=== PATIENT | female | born 1975 ===

== ENCOUNTER 2017-08-30 09:36 | Observation (INO) | payer SELFPAY ==
[2017-08-30 09:38] VITALS: BMI 26.0
[2017-08-30 11:18] LABS: BASO # 0.1 K/uL (0.0-0.2); BASO % 1.1 % (0.0-2.0); EOS # 0.1 K/uL (0.0-0.7); EOS % 1.9 % (0.0-4.0); HEMOGLOBIN 15.2 g/dL (12.0-16.0); LYMPH % 33.4 % (20.0-40.0); MEAN CELL VOLUME 99.2 fl (81.0-99.0); MEAN CORPUSCULAR HEMOGLOBIN 34.2 pg (27.0-31.0); MEAN CORPUSCULAR HGB CONC 34.4 g/dL (33.0-37.0); MEAN PLATELET VOLUME 9.6 fl (7.2-11.7); MONO # 0.4 K/uL (0.0-0.8); MONO % 6.8 % (0.0-10.0); NEUT # 3.4 K/uL (1.8-7.0); NEUT % 56.8 % (50.0-75.0); NRBC % 0.1 % (0.0-0.0); RBC 4.44 Mil/uL (3.80-5.20)
[2017-08-30 11:23] LABS: PROTHROMBIN TIME 10.5 Seconds (9.8-13.1)
[2017-08-30 11:24] LABS: PARTIAL THROMBOPLASTIN TIME 32.4 Seconds (25.6-37.1)
--- NOTE | 2017-08-30 11:47 | CT ---
PROCEDURE: CT HEAD WITHOUT CONTRAST. HISTORY: Perioral numbness COMPARISON: None available. TECHNIQUE: Axial computed tomography images were obtained through the head/brain without intravenous contrast. Radiation dose: Total exam DLP = 843.76 mGy-cm. This CT exam was performed using one or more of the following dose reduction techniques: Automated exposure control, adjustment of the mA and/or kV according to patient size, and/or use of iterative reconstruction technique. FINDINGS: HEMORRHAGE: No intracranial hemorrhage. BRAIN: Normal milian-white matter differentiation and density are appreciated throughout the cerebrum and cerebellum with the brainstem appearing unremarkable as well. There is no mass effect. There is no suspicious extra-axial fluid collection and the midline brain anatomy appears diffusely unremarkable. VENTRICLES: Unremarkable. No hydrocephalus. CALVARIUM: Unremarkable. PARANASAL SINUSES: Unremarkable as visualized. No significant inflammatory changes. MASTOID AIR CELLS: Unremarkable as visualized. No inflammatory changes. OTHER FINDINGS: None. IMPRESSION: Unremarkable unenhanced head CT.
--- NOTE | 2017-08-30 11:59 | RAD ---
HISTORY: Perioral numbness COMPARISON: No prior. TECHNIQUE: Chest PA and lateral FINDINGS: LUNGS: No active pulmonary disease. PLEURA: No significant pleural effusion identified. No pneumothorax apparent. CARDIOVASCULAR: Normal. OSSEOUS STRUCTURES: No significant abnormalities. VISUALIZED UPPER ABDOMEN: Normal. OTHER FINDINGS: None. IMPRESSION: No active disease.
[2017-08-30 12:00] LABS: ALB/GLOB RATIO 1.2 (1.0-2.1); ALBUMIN 4.1 g/dL (3.5-5.0); ALT/SGPT 47 U/L (9-52); AST/SGOT 28 U/L (14-36); BLOOD UREA NITROGEN 10 mg/dl (7-17); CALCIUM 8.8 mg/dL (8.4-10.2); GFR AFRICAN-AMERICAN > 60; GFR NON-AFRICAN AMERICAN > 60; HDL CHOLESTEROL 48 MG/DL (30-70)
[2017-08-30 12:12] LABS: LDL CHOLESTEROL 85 mg/dL (0-129)
--- NOTE | 2017-08-30 12:17 | ED PDOC ---
HPI: Neurologic - General Time Seen by Provider: 08/30/17 10:27 Chief Complaint (Nursing): Upper Extremity Problem/Injury Chief Complaint (Provider): Mouth numbness Source: patient Exam Limitations: language barrier (Ham Pumper: Juanis Pace) - History of Present Illness Allergies/Adverse Reactions: Allergies No Known Allergies Allergy (Verified 08/30/17 09:45) Home Medications: Ambulatory Orders No Known Home Med 08/30/17 Additional Complaint(s): Pt sent from [facility] for numbness around mouth, r/o TIA. Reports symptom X 2 weeks , intermittent. Current episode started 5 days ago, resolving at present. Denies MEDRANO, visual changes, extremity numbness or weakness. rTPA Inclusion/Exclusion - Refusal of Treatment Patient Refused Treatment: No - Inclusion Criteria for Altepase Patient is 18 years or Older: Yes The Clinical Diagnosis of Ischemic Stroke That is Causing a Potentially Disabling Neurological Deficit: No Time of Onset is Well Established to be Less Than 270 Minute Before Treatment Would Begin: No Risk/Benefit Discussed With Patient/Family Member Present: No Past Medical History Reviewed: Nursing Documentation, Vital Signs Vital Signs: Last Vital Signs Temp 97.5 F L 08/30/17 09:38 Pulse 57 L 08/30/17 09:38 Resp 17 08/30/17 09:38 BP 161/85 H 08/30/17 09:38 Pulse Ox 98 08/30/17 09:45 - Medical History PMH: No Chronic Diseases - Family History Family History: States: Unknown Family Hx - Social History Current smoker - smoking cessation education provided: No Alcohol: None - Home Medications Home Medications: Ambulatory Orders Medication Instructions Recorded No Known Home Med 08/30/17 - Allergies Allergies/Adverse Reactions: Allergies Allergy/AdvReac Type Severity Reaction Status Date / Time No Known Allergies Allergy Verified 08/30/17 09:45 Review of Systems Constitutional: Negative for: Fever, Chills, Weakness, Malaise Cardiovascular: Negative for: Chest Pain, Palpitations Respiratory: Negative for: Cough, Shortness of Breath Gastrointestinal: Negative for: Abdominal Pain Musculoskeletal: Negative for: Neck Pain, Back Pain Skin: Negative for: Rash, Lesions Neurological: Positive for: Numbness (Perioral). Negative for: Weakness, Incoordination, Change in Speech, Confusion, Seizures, Altered Mental Status, Headache, Dizziness Physical Exam - Reviewed Nursing Documentation Reviewed: Yes Vital Signs Reviewed: Yes - Physical Exam Appears: Positive for: Well, No Acute Distress Head Exam: Positive for: ATRAUMATIC, NORMAL INSPECTION Skin: Positive for: Normal Color, Warm, Dry Eye Exam: Positive for: Normal appearance, EOMI, PERRL ENT: Positive for: Normal ENT Inspection Neck: Positive for: Normal, Painless ROM, Supple Cardiovascular/Chest: Positive for: Regular Rate, Rhythm Respiratory: Positive for: Normal Breath Sounds Extremity: Positive for: Normal ROM Neurologic/Psych: Positive for: Alert, yard laborer II-XII, Oriented, Gait (Steady). Negative for: Motor/Sensory Deficits, Aphasia, Facial Droop - Laboratory Results Result Diagrams: 08/30/17 11:00 08/30/17 11:00 - ECG O2 Sat by Pulse Oximetry: 98 Medical Decision Making Medical Decision Makin yo female with perioral numbness. - labs - EKG - CXR - CT head Accession No. : [id number] Patient Name / ID : FLORENCIA ANTONIO / [id number] Exam Date : 08/30/2017 11:07:10 ( Approved ) Study Comment : Sex / Age : F / 42Y Creator : Wally Dutta MD Dictator : Wally Dutta MD Waiter/Waitress Counter : Manipulative Therapy Specialist : Wally Dutta MD Approver2 : Report Date : 08/30/2017 11:58:13 My Comment : HISTORY: Perioral numbness COMPARISON: No prior. TECHNIQUE: Chest PA and lateral FINDINGS: LUNGS: No active pulmonary disease. PLEURA: No significant pleural effusion identified. No pneumothorax apparent. CARDIOVASCULAR: Normal. OSSEOUS STRUCTURES: No significant abnormalities. VISUALIZED UPPER ABDOMEN: Normal. OTHER FINDINGS: None. IMPRESSION: No active disease. Accession No. : [id number] Patient Name / ID : FLORENCIA STAFFORD / [id number] Exam Date : 08/30/2017 11:28:50 ( Approved ) Study Comment : Sex / Age : F / 42Y Creator : Zack Martínez MD Dictator : Zack Martínez MD Waiter/Waitress Counter : Manipulative Therapy Specialist : Zack Martínez MD Approver2 : Report Date : 08/30/2017 11:45:36 My Comment : PROCEDURE: CT HEAD WITHOUT CONTRAST. HISTORY: Perioral numbness COMPARISON: None available. TECHNIQUE: Axial computed tomography images were obtained through the head/brain without intravenous contrast. Radiation dose: Total exam DLP = 843.76 mGy-cm. This CT exam was performed using one or more of the following dose reduction techniques: Automated exposure control, adjustment of the mA and/or kV according to patient size, and/or use of iterative reconstruction technique. FINDINGS: HEMORRHAGE: No intracranial hemorrhage. BRAIN: Normal milian-white matter differentiation and density are appreciated throughout the cerebrum and cerebellum with the brainstem appearing unremarkable as well. There is no mass effect. There is no suspicious extra-axial fluid collection and the midline brain anatomy appears diffusely unremarkable. VENTRICLES: Unremarkable. No hydrocephalus. CALVARIUM: Unremarkable. PARANASAL SINUSES: Unremarkable as visualized. No significant inflammatory changes. MASTOID AIR CELLS: Unremarkable as visualized. No inflammatory changes. OTHER FINDINGS: None. IMPRESSION: Unremarkable unenhanced head CT. Disposition - Clinical Impression Clinical Impression: Perioral numbness - Patient ED Disposition Is Patient to be Admitted: Yes - Disposition Disposition Time: 12:13 (.) Condition: STABLE - Pt Status Changed To: Hospital Disposition Of: Observation - POA Present On Arrival: None
[2017-08-30 12:48] LABS: SQUAMOUS EPITHIAL 1 /hpf (0-5); URINE BACTERIA RARE (<OCC); URINE BILIRUBIN NEGATIVE (NEGATIVE); URINE BLOOD NEGATIVE (NEGATIVE); URINE CLARITY SLIGHTY-CLOUDY (Clear); URINE COLOR STRAW (YELLOW); URINE GLUCOSE (UA) NEG (Normal); URINE LEUKOCYTE ESTERASE TRACE Leu/uL (Negative); URINE PROTEIN NEGATIVE (NEGATIVE); URINE UROBILINOGEN 0.2-1.0 mg/dL (0.2-1.0)
[2017-08-30] MEDS: Sodium Chloride 0.9% 1,000 ML IV SCH (13:09)
--- NOTE | 2017-08-30 15:40 | CP.PCM.HP ---
History of Present Illness - History of Present Illness History of Present Illness: CC: Prisca-oral numbness HPI: 42 YO Female with sig PMH presents to [facility] ED from [facility] for perioral numbness. Pt states that her symptoms started about 2 weeks ago, numbness is located bilaterally and is episodic in nature. Pt states that she had the numbness this morning, but it has resolved. Eating w/o any difficulties, no weakness in the upper or lower extremities, no headache, dizziness, blurry vision. ED: VS were stable in ED. CT head was done unremarkable CT. Chest X-ray no active disease. EKG 57, sinus bradycardia with no acute ST changes. Blood work and urine appreciated, wnl. PO asa 325mg. PMD: [facility]; Dr. 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, LMP was 2 weeks ago-regular Allergies: NKDA Meds: no home meds Present on Admission - Present on Admission Any Indicators Present on Admission: No Review of Systems - EENT Eyes: absent: Blind Spots, Blurred Vision, Change in Vision Nose/Mouth/Throat: absent: Lip Swelling, Mouth Lesions, Mouth Pain, Facial Pain - Cardiovascular Cardiovascular: absent: Chest Pain, Dyspnea, Palpitations - Respiratory Respiratory: absent: Cough, Dyspnea - Gastrointestinal Gastrointestinal: absent: Abdominal Pain, Bloating, Diarrhea - Genitourinary Genitourinary: absent: Difficulty Urinating, Dysuria - Reproductive: Female Reproductive:Female: Normal Menses - Neurological Neurological: Numbness (prisca-oral numbness). absent: Confusion, Dizziness, Focal Weakness, Headaches, Memory Loss, Syncope - Psychiatric Psychiatric: absent: Anxiety, Depression Past Patient History - Past Social History Smoking Status: Never Smoked Alcohol: None Drugs: Denies Home Situation {Lives}: With Family - PSYCHIATRIC Hx Substance Use: No - SURGICAL HISTORY Hx Surgeries: No Meds Allergies/Adverse Reactions: Allergies Allergy/AdvReac Type Severity Reaction Status Date / Time No Known Allergies Allergy Verified 08/30/17 09:45 Physical Exam - Constitutional Appears: No Acute Distress - Head Exam Head Exam: ATRAUMATIC, NORMAL INSPECTION, NORMOCEPHALIC - Eye Exam Eye Exam: EOMI, Normal appearance - ENT Exam ENT Exam: Mucous Membranes Moist, Normal Exam Additional comments: No prisca-oral lesions, no sensory deficit. - Respiratory Exam Respiratory Exam: Clear to Auscultation Bilateral, NORMAL BREATHING PATTERN. absent: Wheezes - Cardiovascular Exam Cardiovascular Exam: REGULAR RHYTHM, +S1, +S2 - GI/Abdominal Exam GI & Abdominal Exam: Normal Bowel Sounds, Soft. absent: Tenderness - Extremities Exam Extremities exam: Positive for: full ROM. Negative for: pedal edema Additional comments: Neg pronator drift - Back Exam Back exam: NORMAL INSPECTION. absent: CVA tenderness (L), CVA tenderness (R) - Neurological Exam Neurological exam: Alert, CN II-XII Intact, Normal Gait, Oriented x3, Reflexes Normal (b/l in the upper and lower extremities ) Additional comments: Good strength and sensation in the upper and lower extremities No balance, gait issues - Psychiatric Exam Psychiatric exam: Normal Affect, Normal Mood - Skin Skin Exam: Dry, Intact, Normal Color, Warm Results - Vital Signs Recent Vital Signs: Last Vital Signs Temp 97.8 F 08/30/17 13:20 Pulse 66 08/30/17 13:20 Resp 18 08/30/17 13:20 BP 148/62 08/30/17 13:20 Pulse Ox 100 08/30/17 13:20 - Labs Result Diagrams: 08/30/17 11:00 08/30/17 11:00 Labs: Laboratory Results - last 24 hr 08/30/17 08/30/17 08/30/17 11:00 11:00 11:00 WBC 6.0 RBC 4.44 Hgb 15.2 Hct 44.1 MCV 99.2 H MCH 34.2 H MCHC 34.4 RDW 13.0 Plt Count 235 MPV 9.6 Neut % (Auto) 56.8 Lymph % (Auto) 33.4 [place] % (Auto) 6.8 Eos % (Auto) 1.9 Baso % (Auto) 1.1 Neut # (Auto) 3.4 Lymph # (Auto) 2.0 [place] # (Auto) 0.4 Eos # (Auto) 0.1 Baso # (Auto) 0.1 PT INR APTT Sodium 140 Potassium 4.1 Chloride 105 Carbon Dioxide 28 Anion Gap 11 BUN 10 Creatinine 0.5 L Est GFR ( Amer) > 60 Est GFR (Non-Af Amer) > 60 POC Glucose (mg/dL) Random Glucose 96 Hemoglobin A1c 5.4 Calcium 8.8 Total Bilirubin 0.5 AST 28 ALT 47 Alkaline Phosphatase 76 Troponin I < 0.0120 Total Protein 7.4 Albumin 4.1 Globulin 3.4 Albumin/Globulin Ratio 1.2 Triglycerides 65 Cholesterol 151 LDL Cholesterol Direct 85 HDL Cholesterol 48 Urine Color Urine Clarity Urine pH Ur Specific [place] Urine Protein Urine Glucose (UA) Urine Ketones Urine Blood Urine Nitrate Urine Bilirubin Urine Urobilinogen Ur Leukocyte Esterase Urine RBC (Auto) Urine Microscopic WBC Ur Squamous Epith Cells Urine Bacteria Blood Type Antibody Screen BBK History Checked 08/30/17 08/30/17 08/30/17 11:00 11:10 12:30 WBC RBC Hgb Hct MCV MCH MCHC RDW Plt Count MPV Neut % (Auto) Lymph % (Auto) [place] % (Auto) Eos % (Auto) Baso % (Auto) Neut # (Auto) Lymph # (Auto) [place] # (Auto) Eos # (Auto) Baso # (Auto) PT 10.5 INR 1.0 APTT 32.4 Sodium Potassium Chloride Carbon Dioxide Anion Gap BUN Creatinine Est GFR ( Amer) Est GFR (Non-Af Amer) POC Glucose (mg/dL) 88 Random Glucose Hemoglobin A1c Calcium Total Bilirubin AST ALT Alkaline Phosphatase Troponin I Total Protein Albumin Globulin Albumin/Globulin Ratio Triglycerides Cholesterol LDL Cholesterol Direct HDL Cholesterol Urine Color Straw Urine Clarity Slighty-cloudy Urine pH 7.0 Ur Specific [place] 1.006 Urine Protein Negative Urine Glucose (UA) Neg Urine Ketones Negative Urine Blood Negative Urine Nitrate Negative Urine Bilirubin Negative Urine Urobilinogen 0.2-1.0 Ur Leukocyte Esterase Trace Urine RBC (Auto) 1 Urine Microscopic WBC 2 Ur Squamous Epith Cells 1 Urine Bacteria Rare Blood Type Antibody Screen BBK History Checked 08/30/17 12:50 WBC RBC Hgb Hct MCV MCH MCHC RDW Plt Count MPV Neut % (Auto) Lymph % (Auto) [place] % (Auto) Eos % (Auto) Baso % (Auto) Neut # (Auto) Lymph # (Auto) [place] # (Auto) Eos # (Auto) Baso # (Auto) PT INR APTT Sodium Potassium Chloride Carbon Dioxide Anion Gap BUN Creatinine Est GFR ( Amer) Est GFR (Non-Af Amer) POC Glucose (mg/dL) Random Glucose Hemoglobin A1c Calcium Total Bilirubin AST ALT Alkaline Phosphatase Troponin I Total Protein Albumin Globulin Albumin/Globulin Ratio Triglycerides Cholesterol LDL Cholesterol Direct HDL Cholesterol Urine Color Urine Clarity Urine pH Ur Specific [place] Urine Protein Urine Glucose (UA) Urine Ketones Urine Blood Urine Nitrate Urine Bilirubin Urine Urobilinogen Ur Leukocyte Esterase Urine RBC (Auto) Urine Microscopic WBC Ur Squamous Epith Cells Urine Bacteria Blood Type O POSITIVE Antibody Screen Negative BBK History Checked No verified bt Assessment & Plan - Assessment and Plan (Free Text) Assessment: Assessment/Plan: 42 YO Female with no sig PMH is admitted for prisca-oral numbness, r/o TIA. Prisca-oral numbness -Unlikely to be TIA -Initial BP elevated at 161/85, following bp 148/62 -CT head: no acute findings -Chest X-ray: no active disease -EKG: sinus bradycardia with no acute ST changes -s/p asa 325mg -Calcium is wnl at 8.8 -b12 levels f/u -admit for obs in telemetry Asymptomatic bradycardia -initial HR 57, subsequent HR 66 -on chart review ecw, HR 50-69 -continue to monitor Diet -regular diet DVT props -Lovenox 40 SC
--- NOTE | 2017-08-30 18:13 | CP.PCM.CON ---
History of Present Illness - History of Present Illness History of Present Illness: Mrs. Shukri Sandoval is a 42-year-old woman with no significant past medical history, but states that her job is stressful, and has been having prisca-oral numbness in the mornings on occasion for the last two weeks. When I saw the patient, she was asymptomatic. She denied hyperventilation, changes in her diet , or any associated weakness, numbness or changes in vision. CT scan of the head was normal. Review of Systems - Review of Systems All systems: reviewed and no additional remarkable complaints except Past Patient History - Past Medical History & Family History Past Medical History?: Yes - Past Social History Smoking Status: Never Smoked Alcohol: None Drugs: Denies Home Situation {Lives}: With Family - CARDIAC Hx Cardiac Disorders: No - PULMONARY Hx Respiratory Disorders: No - NEUROLOGICAL Hx Neurological Disorder: No - HEENT Hx HEENT Problems: No - RENAL Hx Chronic Kidney Disease: No - ENDOCRINE/METABOLIC Hx Endocrine Disorders: No - HEMATOLOGICAL/ONCOLOGICAL Hx Blood Disorders: No - INTEGUMENTARY Hx Dermatological Problems: No - MUSCULOSKELETAL/RHEUMATOLOGICAL Hx Musculoskeletal Disorders: No Hx Falls: No - GASTROINTESTINAL Hx Gastrointestinal Disorders: No - GENITOURINARY/GYNECOLOGICAL Hx Genitourinary Disorders: No - PSYCHIATRIC Hx Substance Use: No - SURGICAL HISTORY Hx Surgeries: No - ANESTHESIA Hx Anesthesia Reactions: No Hx Malignant Hyperthermia: No Has any member of the family had a problem w/ anesthesia?: No Meds Allergies/Adverse Reactions: Allergies Allergy/AdvReac Type Severity Reaction Status Date / Time No Known Allergies Allergy Verified 08/30/17 09:45 - Medications Medications: Current Medications Enoxaparin Sodium (Lovenox) 40 mg SC DAILY VITALY PRN Reason: Protocol Sodium Chloride (Sodium Chloride 0.9%) 1,000 mls @ 100 mls/hr IV .Q10H VITALY Last Admin: 08/30/17 13:09 Dose: 100 mls/hr Physical Exam - Neurological Exam Neurological exam: Alert, CN II-XII Intact, Normal Gait, Oriented x3, Reflexes Normal Results - Vital Signs Recent Vital Signs: Last Vital Signs Temp 97.4 F L 08/30/17 16:32 Pulse 59 L 08/30/17 16:32 Resp 16 08/30/17 16:32 BP 149/99 H 08/30/17 16:32 Pulse Ox 99 08/30/17 16:32 - Labs Result Diagrams: 08/30/17 11:00 08/30/17 11:00 Labs: Laboratory Results - last 24 hr 08/30/17 08/30/17 08/30/17 11:00 11:00 11:00 WBC 6.0 RBC 4.44 Hgb 15.2 Hct 44.1 MCV 99.2 H MCH 34.2 H MCHC 34.4 RDW 13.0 Plt Count 235 MPV 9.6 Neut % (Auto) 56.8 Lymph % (Auto) 33.4 [place] % (Auto) 6.8 Eos % (Auto) 1.9 Baso % (Auto) 1.1 Neut # (Auto) 3.4 Lymph # (Auto) 2.0 [place] # (Auto) 0.4 Eos # (Auto) 0.1 Baso # (Auto) 0.1 PT INR APTT Sodium 140 Potassium 4.1 Chloride 105 Carbon Dioxide 28 Anion Gap 11 BUN 10 Creatinine 0.5 L Est GFR ( Amer) > 60 Est GFR (Non-Af Amer) > 60 POC Glucose (mg/dL) Random Glucose 96 Hemoglobin A1c 5.4 Calcium 8.8 Total Bilirubin 0.5 AST 28 ALT 47 Alkaline Phosphatase 76 Troponin I < 0.0120 Total Protein 7.4 Albumin 4.1 Globulin 3.4 Albumin/Globulin Ratio 1.2 Triglycerides 65 Cholesterol 151 LDL Cholesterol Direct 85 HDL Cholesterol 48 Urine Color Urine Clarity Urine pH Ur Specific [place] Urine Protein Urine Glucose (UA) Urine Ketones Urine Blood Urine Nitrate Urine Bilirubin Urine Urobilinogen Ur Leukocyte Esterase Urine RBC (Auto) Urine Microscopic WBC Ur Squamous Epith Cells Urine Bacteria Blood Type Antibody Screen BBK History Checked 08/30/17 08/30/17 08/30/17 11:00 11:10 12:30 WBC RBC Hgb Hct MCV MCH MCHC RDW Plt Count MPV Neut % (Auto) Lymph % (Auto) [place] % (Auto) Eos % (Auto) Baso % (Auto) Neut # (Auto) Lymph # (Auto) [place] # (Auto) Eos # (Auto) Baso # (Auto) PT 10.5 INR 1.0 APTT 32.4 Sodium Potassium Chloride Carbon Dioxide Anion Gap BUN Creatinine Est GFR ( Amer) Est GFR (Non-Af Amer) POC Glucose (mg/dL) 88 Random Glucose Hemoglobin A1c Calcium Total Bilirubin AST ALT Alkaline Phosphatase Troponin I Total Protein Albumin Globulin Albumin/Globulin Ratio Triglycerides Cholesterol LDL Cholesterol Direct HDL Cholesterol Urine Color Straw Urine Clarity Slighty-cloudy Urine pH 7.0 Ur Specific [place] 1.006 Urine Protein Negative Urine Glucose (UA) Neg Urine Ketones Negative Urine Blood Negative Urine Nitrate Negative Urine Bilirubin Negative Urine Urobilinogen 0.2-1.0 Ur Leukocyte Esterase Trace Urine RBC (Auto) 1 Urine Microscopic WBC 2 Ur Squamous Epith Cells 1 Urine Bacteria Rare Blood Type Antibody Screen BBK History Checked 08/30/17 12:50 WBC RBC Hgb Hct MCV MCH MCHC RDW Plt Count MPV Neut % (Auto) Lymph % (Auto) [place] % (Auto) Eos % (Auto) Baso % (Auto) Neut # (Auto) Lymph # (Auto) [place] # (Auto) Eos # (Auto) Baso # (Auto) PT INR APTT Sodium Potassium Chloride Carbon Dioxide Anion Gap BUN Creatinine Est GFR ( Amer) Est GFR (Non-Af Amer) POC Glucose (mg/dL) Random Glucose Hemoglobin A1c Calcium Total Bilirubin AST ALT Alkaline Phosphatase Troponin I Total Protein Albumin Globulin Albumin/Globulin Ratio Triglycerides Cholesterol LDL Cholesterol Direct HDL Cholesterol Urine Color Urine Clarity Urine pH Ur Specific [place] Urine Protein Urine Glucose (UA) Urine Ketones Urine Blood Urine Nitrate Urine Bilirubin Urine Urobilinogen Ur Leukocyte Esterase Urine RBC (Auto) Urine Microscopic WBC Ur Squamous Epith Cells Urine Bacteria Blood Type O POSITIVE Antibody Screen Negative BBK History Checked No verified bt Assessment & Plan (1) Perioral numbness Assessment and Plan: Likely anxiety or hyperventilation relation. Labs and imaging are normal. Follow up with outpatient primary care. Thank you. Status: Chronic Priority: Low
[2017-08-31] MEDS: Sodium Chloride 0.9% 1,000 ML IV SCH (00:09)
[2017-08-31 08:00] VITALS: BP 143/80; PULSE 64; RESP 16; TEMP 97.5; O2SAT 98
[2017-08-31] MEDS ORDERED: Enoxaparin 40 mg Syringe SC SCH (09:00)
--- NOTE | 2017-08-31 10:24 | CP.PCM.DIS ---
Addendum entered and electronically signed by Eduar Zuñiga MD 08/31/17 10:35 : PE: CV WNL Pulm: WNL Neuro: CN 2-12 intact ROS: negative Eval by neuro, cleared for DC Original Note: Provider - Provider Date of Admission: 08/30/17 12:13 Attending physician: Kelly Cardona MD Time Spent in preparation of Discharge (in minutes): 20 Diagnosis - Discharge Diagnosis (1) Perioral numbness Status: Chronic Priority: Low Hospital Course - Lab Results Lab Results: Most Recent Lab Values WBC 6.0 K/uL (4.8-10.8) 08/30/17 11:00 RBC 4.44 Mil/uL (3.80-5.20) 08/30/17 11:00 Hgb 15.2 g/dL (12.0-16.0) 08/30/17 11:00 Hct 44.1 % (34.0-47.0) 08/30/17 11:00 MCV 99.2 fl (81.0-99.0) H 08/30/17 11:00 MCH 34.2 pg (27.0-31.0) H 08/30/17 11:00 MCHC 34.4 g/dL (33.0-37.0) 08/30/17 11:00 RDW 13.0 % (11.5-14.5) 08/30/17 11:00 Plt Count 235 K/uL (130-400) 08/30/17 11:00 MPV 9.6 fl (7.2-11.7) 08/30/17 11:00 Neut % (Auto) 56.8 % (50.0-75.0) 08/30/17 11:00 Lymph % (Auto) 33.4 % (20.0-40.0) 08/30/17 11:00 Rincon % (Auto) 6.8 % (0.0-10.0) 08/30/17 11:00 Eos % (Auto) 1.9 % (0.0-4.0) 08/30/17 11:00 Baso % (Auto) 1.1 % (0.0-2.0) 08/30/17 11:00 Neut # (Auto) 3.4 K/uL (1.8-7.0) 08/30/17 11:00 Lymph # (Auto) 2.0 K/uL (1.0-4.3) 08/30/17 11:00 Rincon # (Auto) 0.4 K/uL (0.0-0.8) 08/30/17 11:00 Eos # (Auto) 0.1 K/uL (0.0-0.7) 08/30/17 11:00 Baso # (Auto) 0.1 K/uL (0.0-0.2) 08/30/17 11:00 PT 10.5 Seconds (9.8-13.1) 08/30/17 11:00 INR 1.0 (0.9-1.2) 08/30/17 11:00 APTT 32.4 Seconds (25.6-37.1) 08/30/17 11:00 Sodium 140 mmol/l (132-148) 08/30/17 11:00 Potassium 4.1 MMOL/L (3.6-5.0) 08/30/17 11:00 Chloride 105 mmol/L (98-107) 08/30/17 11:00 Carbon Dioxide 28 mmol/L (22-30) 08/30/17 11:00 Anion Gap 11 (10-20) 08/30/17 11:00 BUN 10 mg/dl (7-17) 08/30/17 11:00 Creatinine 0.5 mg/dl (0.7-1.2) L 08/30/17 11:00 Est GFR ( Amer) > 60 08/30/17 11:00 Est GFR (Non-Af Amer) > 60 08/30/17 11:00 POC Glucose (mg/dL) 88 mg/dL (65-110) 08/30/17 11:10 Random Glucose 96 mg/dL (65-105) 08/30/17 11:00 Hemoglobin A1c 5.4 % (4.2-6.5) 08/30/17 11:00 Calcium 8.8 mg/dL (8.4-10.2) 08/30/17 11:00 Total Bilirubin 0.5 mg/dl (0.2-1.3) 08/30/17 11:00 AST 28 U/L (14-36) 08/30/17 11:00 ALT 47 U/L (9-52) 08/30/17 11:00 Alkaline Phosphatase 76 U/L (38-126) 08/30/17 11:00 Troponin I < 0.0120 ng/mL (0.00-0.120) 08/30/17 11:00 Total Protein 7.4 G/DL (6.3-8.2) 08/30/17 11:00 Albumin 4.1 g/dL (3.5-5.0) 08/30/17 11:00 Globulin 3.4 gm/dL (2.2-3.9) 08/30/17 11:00 Albumin/Globulin Ratio 1.2 (1.0-2.1) 08/30/17 11:00 Triglycerides 65 mg/DL (0-149) 08/30/17 11:00 Cholesterol 151 mg/dL (0-199) 08/30/17 11:00 LDL Cholesterol Direct 85 mg/dL (0-129) 08/30/17 11:00 HDL Cholesterol 48 MG/DL (30-70) 08/30/17 11:00 Vitamin B12 484 pg/mL (239-931) 08/30/17 16:36 Urine Color Straw (YELLOW) 08/30/17 12:30 Urine Clarity Slighty-cloudy (Clear) 08/30/17 12:30 Urine pH 7.0 (5.0-8.0) 08/30/17 12:30 Ur Specific Moran 1.006 (1.003-1.030) 08/30/17 12:30 Urine Protein Negative mg/dL (NEGATIVE) 08/30/17 12:30 Urine Glucose (UA) Neg mg/dL (Normal) 08/30/17 12:30 Urine Ketones Negative mg/dL (NEGATIVE) 08/30/17 12:30 Urine Blood Negative (NEGATIVE) 08/30/17 12:30 Urine Nitrate Negative (NEGATIVE) 08/30/17 12:30 Urine Bilirubin Negative (NEGATIVE) 08/30/17 12:30 Urine Urobilinogen 0.2-1.0 mg/dL (0.2-1.0) 08/30/17 12:30 Ur Leukocyte Esterase Trace Karol/uL (Negative) 08/30/17 12:30 Urine RBC (Auto) 1 /hpf (0-3) 08/30/17 12:30 Urine Microscopic WBC 2 /hpf (0-5) 08/30/17 12:30 Ur Squamous Epith Cells 1 /hpf (0-5) 08/30/17 12:30 Urine Bacteria Rare (<OCC) 08/30/17 12:30 Blood Type O POSITIVE 08/30/17 12:50 Antibody Screen Negative 08/30/17 12:50 BBK History Checked No verified bt 08/30/17 12:50 - Hospital Course Hospital Course: 42 YO Female with sig PMH presents to [facility] ED from [facility] for perioral numbness. VS were stable in ED. CT head was done unremarkable CT. Chest X-ray no active disease. EKG 57, asymptomatic sinus bradycardia with no acute ST changes. Blood work and urine appreciated, wnl. PO asa 325mg. follow up with PMD in 2-3 days Stable to DC home No medications given on DC. Discharge Exam - Head Exam Head Exam: ATRAUMATIC, NORMAL INSPECTION, NORMOCEPHALIC Discharge Plan - Follow Up Plan Condition: STABLE Disposition: HOME/ ROUTINE Additional Instructions: follow up with PMD in 2-3 days Stable to DC home
--- NOTE | 2017-08-31 16:50 | CARD ---
APPROVED REPORT EKG Measurement Heart [id number] <Conclusion> Sinus bradycardia Otherwise normal ECG
== END 2017-08-31 11:40 | disposition home or self-care (01) ==
LOC: H.ER 09:36 → H.ERHOLD 12:13 → H.TEL 15:06
PROVIDERS: ADMIT Family Medicine Geriatric Medicine; ATTEND Family Medicine Geriatric Medicine
DX: F41.9 Anxiety disorder, unspecified (principal); Z79.82 Long term (current) use of aspirin; R00.1 Bradycardia, unspecified; R03.0 Elevated blood-pressure reading, without diagnosis of hypertension; R06.4 Hyperventilation
CPT/HCPCS: 70450; 71046; 80053; 80061; 81003; 81025; 82607; 82948; 83036; 84484; 85025; 85610; 85730; 86850; 86900; 93005; 96360; 96361; 96372; 99285; G0378; J1650; J7030